=== PATIENT | male | born 1975 | race Asian ===

== ENCOUNTER 2018-01-10 08:34 | Day surgery (SDC) | payer OTHER ==
[~2018-01-10 08:34] MED LIST: CEFAZOLIN 1 GM INJ; PROPOFOL 200 MG INJ
[2018-01-10 09:32] LABS: ADD MAN DIFF? NO
[2018-01-10 09:43] LABS: WHITE BLOOD COUNT 5.9 10^3/ul (4.8-10.8)
[2018-01-10 09:43] LABS: BASOPHILS % 0.5 % (0.0-2.0); EOSINOPHILS # 0.2 10^3/ul (0.0-0.5); EOSINOPHILS % 2.7 % (0.0-7.0); HEMOGLOBIN 14.3 g/dl (14.0-18.0); LYMPHOCYTES # 1.9 10^3/ul (0.8-2.9); LYMPHOCYTES % 31.6 % (15.0-51.0); MEAN CORPUSCULAR VOLUME 88.1 fl (82.0-101.0); MEAN PLATELET VOLUME 10.5 fl (7.4-10.4); MONOCYTE # 0.5 10^3/ul (0.3-0.9); MONOCYTES % 8.8 % (0.0-11.0); NEUTROPHIL # 3.3 10^3/ul (1.6-7.5); NEUTROPHILS % 56.2 % (39.0-77.0); PLATELET COUNT 186 10^3/UL (140-415); RED BLOOD COUNT 4.77 10^6/ul (4.70-6.10); RED CELL DISTRIBUTION WIDTH 13.3 % (11.5-14.5)
[2018-01-10 10:07] LABS: ANION GAP 18 (8-16); CARBON DIOXIDE 27 mmol/L (21-31); CHLORIDE 106 mmol/L (97-110); CHOL/HDL RATIO 3.5 RATIO; CHOLESTEROL 174 mg/dl (100-200); GLUCOSE 96 mg/dl (70-220); HDL CHOLESTEROL 49 mg/dl (27-67); LDL CHOLESTEROL,CALCULATED 97 mg/dl; TRIGLYCERIDES 139 mg/dl (0-149)
[2018-01-10 10:10] LABS: BLOOD UREA NITROGEN 14 mg/dl (7-20); CALCIUM 9.4 mg/dl (8.4-10.2); CREATININE 1.04 mg/dl (0.61-1.24); POTASSIUM 4.9 mmol/L (3.5-5.1); SODIUM 146 mmol/L (135-144)
[2018-01-10 10:22] LABS: PROTIME 13.3 Sec (11.9-14.9)
[2018-01-10] MEDS ORDERED: ROPIVACAINE 0.5 % 30 ML VIAL (10:29)
[2018-01-10 10:30] LABS: PARTIAL THROMBOPLASTIN TIME 31.1 Sec (25.0-35.0)
[2018-01-10] MEDS ORDERED: LIDOCAINE 2% (SDV) 5 ML INJ (10:30)
[2018-01-10] MEDS ORDERED: PROPOFOL 20 ML (10:30)
[2018-01-10] MEDS ORDERED: MIDAZOLAM 1 MG/ML 2 ML INJ (10:30)
[2018-01-10] MEDS ORDERED: FENTAnyl 50 MCG/ML VIAL (10:30)
[2018-01-10] MEDS ORDERED: ONDANSETRON 4 MG INJ (10:31)
[2018-01-10] MEDS: LIDOCAINE 1% (MPF) 30 ML INJ (11:07)
[2018-01-10] MEDS: BUPIVACAINE 0.5% (SDV) 30 ML INJ (11:07)
[2018-01-10] MEDS: POLYMYXIN/BACITRACIN 1L IRRIG (11:07)
[2018-01-10] MEDS ORDERED: morphine 2 MG INJ IV (11:37)
[2018-01-10] MEDS ORDERED: DC all Lovenox, Heparing, and Coumadin orders. XX (12:00)
[2018-01-10] MEDS: morphine 2 MG INJ IV (12:37)
[2018-01-10] MEDS: CEFAZOLIN 1 GM/50 ML (PMX) 50 ML IVPB (13:39)
== END 2018-01-10 16:57 | disposition home or self-care (01) ==
LOC: SUR 08:34 → SDS 08:34 → SUR 16:57
DX: T82.897A Other specified complication of cardiac prosthetic devices, implants and grafts, initial encounter (principal); E78.5 Hyperlipidemia, unspecified; I10 Essential (primary) hypertension; Y83.8 Other surgical procedures as the cause of abnormal reaction of the patient, or of later complication, without mention of misadventure at the time of the procedure
CPT/HCPCS: 33222; 71045; 80048; 80061; 85025; 85610; 85730; 93005